=== PATIENT | male | born 1970 | race Caucasian/White ===

== ENCOUNTER → 2017-09-18 | Outpatient (CLI) | payer BC | END | disposition home or self-care (01) | LOC: KCIC 14:27 | DX: S62.394A Other fracture of fourth metacarpal bone, right hand, initial encounter for closed fracture (principal); X58.XXXA Exposure to other specified factors, initial encounter; Y93.89 Activity, other specified; Y92.89 Other specified places as the place of occurrence of the external cause; Y99.8 Other external cause status | CPT/HCPCS: 73130 ==

== ENCOUNTER 2018-08-08 02:00 | Emergency (ER) | payer BC ==
[~2018-08-08] VITALS: Ht 172.7 cm; Wt 63.5 kg
[2018-08-08 02:14] LABS: BASO % 1 % (0-3); EOS % 1 % (0-3); HEMOGLOBIN 15.3 g/dL (13.0-17.5); LYMPH # 2.9 x10^3/uL (1.0-4.8); LYMPH % 47 % (24-48); MEAN CORPUSCULAR HEMOGLOBIN 34 pg (25-35); MEAN CORPUSCULAR HGB CONC 34 g/dL (31-37); MEAN CORPUSCULAR VOLUME 99 fL (79-100); MONO # 0.5 x10^3/uL (0.0-1.1); MONO % 8 % (0-9); NEUT # 2.8 x10^3uL (1.8-7.7); NEUT % 45 % (31-73); PLATELET COUNT 221 x10^3/uL (140-400); RED BLOOD COUNT 4.54 x10^6/uL (4.30-5.70); RED CELL DISTRIBUTION WIDTH 13.1 % (11.5-14.5); WHITE BLOOD COUNT 6.3 x10^3/uL (4.0-11.0)
[2018-08-08 02:24] LABS: CALCIUM 9.1 mg/dL (8.5-10.1); CREATININE 0.8 mg/dL (0.7-1.3); GFR 103.2; POTASSIUM 4.2 mmol/L (3.5-5.1)
[2018-08-08 02:30] LABS: ALBUMIN 4.5 g/dL (3.4-5.0); ALBUMIN/GLOBULIN RATIO 1.3 (1.0-1.7); MAGNESIUM 1.8 mg/dL (1.8-2.4); TOTAL BILIRUBIN 0.5 mg/dL (0.2-1.0)
[2018-08-08] MEDS ORDERED: MULTIVIT INFUSN,ADULT 4,VIT K 10 ML, THIAMINE INJ 100 MG, FOLIC ACID INJ 1 MG in IV NOR... IV SCH (03:00)
[2018-08-08 03:07] VITALS: BP 110/65
--- NOTE | 2018-08-08 03:39 | PHYS DOC ---
Past Medical History Past Medical History: Alcoholism, Depression Past Surgical History: Other Additional Past Surgical Histo: 'BACK SURGERY' Smoking: Cigarettes Alcohol Use: Heavy Drug Use: None Adult General Chief Complaint Chief Complaint: ALCOHOL INTOXICATION HPI HPI 47-year-old male presents via EMS with report of alcohol intoxication and abuse. Patient does have a history of depression. Spouse called EMS as patient reportedly yelled "I want to ". Patient has denied suicidality to EMS. Patient does report taking 2 of his prescribed Klonopin earlier today or anxiety. Denies current suicidal or homicidal ideation. Patient is acutely intoxicated. History of present illness limited due to acute intoxication. Review of Systems Review of Systems Psychiatric: Denies suicidal or homicidal ideation Review of systems limited due to acute intoxication Current Medications Current Medications Current Medications Medications (Trade) Dose Ordered Sig/Tati Start Time Stop Time Status Last Admin Dose Admin Multivitamins 10 ml/Thiamine HCl 100 mg/Folic Acid 1 mg/Sodium Chloride 1,011.2 ml @ 1,000 mls/ hr Q1H 08/08/18 03:00 08/08/18 03:00 DC 08/08/18 02:32 1,000 MLS/HR Nicotine (Nicoderm Cq 21mg) 1 patch 1X ONCE 08/08/18 04:00 08/08/18 04:01 DC 08/08/18 03:40 1 PATCH Allergies Allergies Allergies Coded Allergies Type Severity Reaction Last Updated Verified No Known Drug Allergies 08/08/18 No Physical Exam Physical Exam Constitutional: Well developed, well nourished, intoxicated HENT: Normocephalic, atraumatic, oropharynx moist Eyes: PERRL, EOMI, conjunctiva injected, horizontal nystagmus noted Neck: Normal range of motion, no tenderness, supple Cardiovascular: Heart rate regular rhythm, no murmur [] Lungs & Thorax: Bilateral breath sounds clear to auscultation [] Abdomen: Soft, no tenderness Skin: Warm, dry, no erythema, no rash. [] Extremities: No tenderness, ROM intact, no edema. [] Neurologic: Alert and oriented X 2, slurred speech, intoxicated, normal motor function, normal sensory function, no focal deficits noted. [] Psychologic: Affect intoxicated, judgement poor, denies suicidal or homicidal ideation Current Patient Data Vital Signs Vital Signs Date Time Temp Pulse Resp B/P (MAP) Pulse Ox O2 Delivery O2 Flow Rate FiO2 08/08/18 02:10 98.2 97 18 121/78 (92) 95 Room Air 98.2 Lab Values Laboratory Tests Test 08/08/18 02:01 08/08/18 02:05 Salicylates Level < 2.8 mg/dL (2.8-20.0) L Salicylate Last Dose Date Salicylate Last Dose Time Acetaminophen Level < 2 mcg/ml (10-30) L Acetaminophen Last Dose Date Acetaminophen Last Dose Time White Blood Count 6.3 x10^3/uL (4.0-11.0) Red Blood Count 4.54 x10^6/uL (4.30-5.70) Hemoglobin 15.3 g/dL (13.0-17.5) Hematocrit 45.0 % (39.0-53.0) Mean Corpuscular Volume 99 fL (79-100) Mean Corpuscular Hemoglobin 34 pg (25-35) Mean Corpuscular Hemoglobin Concent 34 g/dL (31-37) Red Cell Distribution Width 13.1 % (11.5-14.5) Platelet Count 221 x10^3/uL (140-400) Neutrophils (%) (Auto) 45 % (31-73) Lymphocytes (%) (Auto) 47 % (24-48) Monocytes (%) (Auto) 8 % (0-9) Eosinophils (%) (Auto) 1 % (0-3) Basophils (%) (Auto) 1 % (0-3) Neutrophils # (Auto) 2.8 x10^3uL (1.8-7.7) Lymphocytes # (Auto) 2.9 x10^3/uL (1.0-4.8) Monocytes # (Auto) 0.5 x10^3/uL (0.0-1.1) Eosinophils # (Auto) 0.0 x10^3/uL (0.0-0.7) Basophils # (Auto) 0.0 x10^3/uL (0.0-0.2) Prothrombin Time 12.0 SEC (11.7-14.0) Prothrombin Time INR 0.9 (0.8-1.1) PTT 29 SEC (24-38) Sodium Level 147 mmol/L (136-145) H Potassium Level 4.2 mmol/L (3.5-5.1) Chloride Level 103 mmol/L (98-107) Carbon Dioxide Level 31 mmol/L (21-32) Anion Gap 13 (6-14) Blood Urea Nitrogen 5 mg/dL (8-26) L Creatinine 0.8 mg/dL (0.7-1.3) Estimated GFR (Cockcroft-Gault) 103.2 BUN/Creatinine Ratio 6 (6-20) Glucose Level 101 mg/dL (70-99) H Calcium Level 9.1 mg/dL (8.5-10.1) Magnesium Level 1.8 mg/dL (1.8-2.4) Total Bilirubin 0.5 mg/dL (0.2-1.0) Aspartate Amino Transferase (AST) 68 U/L (15-37) H Alanine Aminotransferase (ALT) 70 U/L (16-63) H Alkaline Phosphatase 76 U/L (46-116) Total Protein 8.0 g/dL (6.4-8.2) Albumin 4.5 g/dL (3.4-5.0) Albumin/Globulin Ratio 1.3 (1.0-1.7) Lipase 90 U/L (73-393) Ethyl Alcohol Level 313 mg/dL (0-10) H Laboratory Tests 08/08/18 02:05 Laboratory Tests 08/08/18 02:05 EKG EKG [] Radiology/Procedures Radiology/Procedures [] Course & Med Decision Making Course & Med Decision Making Pertinent Lab studies reviewed. (See chart for details) Patient presents via EMS with history of present illness and physical exam consistent for acute alcohol intoxication and abuse. Patient does have history of depression. There was concern for possible suicidal statement. Patient denies suicidal or homicidal ideation. Patient monitored in the emergency department. Labs obtained and posted to chart. Alcohol greater than 300. Patient does report taking 2 tabs of Klonopin which he is prescribed for his "anxiety." Tylenol and salicylate levels normal. UDS ordered however patient not able to provide urine sample. Patient monitored in the emergency department until clinically sober. Patient able to walk unassisted with steady gait. Patient alert and oriented 3 now. Patient again asked and denies suicidal or homicidal ideation. Patient stable for discharge home under the care of his spouse with outpatient follow-up with PCP/substance abuse center. Substance abuse/detox pamphlets provided. Discussed findings and plan with patient and family, who acknowledge understanding and agreement. Dragon Disclaimer Dragon Disclaimer This electronic medical record was generated, in whole or in part, using a voice recognition dictation system. Departure Departure Impression: Primary Impression: Alcohol abuse Disposition: 01 HOME, SELF-CARE Condition: STABLE Referrals: ELICEO OLIVEIRA (PCP) Patient Instructions: Alcohol Intoxication, [id number], Alcohol and Drug Addiction, Finding Treatment, Alcohol, FAQs, Chronic Alcoholism KJ [id number] DO Aug 08, 2018 03:39
[2018-08-08] MEDS ORDERED: NICOTINE 21MG PATCH. TD ONE (04:00)
[2018-08-08 04:26] LABS: ACETAMIN < 2 mcg/ml (10-30); SALIC < 2.8 mg/dL (2.8-20.0)
== END 2018-08-08 04:25 | disposition home or self-care (01) ==
LOC: ER 02:00
DX: F10.229 Alcohol dependence with intoxication, unspecified (principal); Y90.8 Blood alcohol level of 240 mg/100 ml or more; R47.81 Slurred speech; F32.9 Major depressive disorder, single episode, unspecified; F17.210 Nicotine dependence, cigarettes, uncomplicated
CPT/HCPCS: 36415; 80053; 80329; 83690; 83735; 85025; 85610; 85730; 96365; 99284; G0480; G6039; J7030